=== PATIENT | male | born 1975 | race Caucasian/White ===

== ENCOUNTER 2022-02-19 09:57 | Day surgery (SDC) | payer OTHER ==
--- NOTE | 2022-02-19 09:08 | HP ---
DATE OF SURGERY: 02/19/2022 HISTORY OF PRESENT ILLNESS: The patient is a 46-year-old for a while now increasing in size, worse with eating, increased bloating ventral hernia likely with some incarcerated preperitoneal fat and omentum. PAST MEDICAL HISTORY: Hypertension, lung disease, anxiety. PAST SURGICAL HISTORY: Carpal tunnel surgery in the past. MEDICATIONS: Testosterone, sildenafil, quetiapine, pantoprazole, mometasone, metoprolol, meloxicam, fluticasone, dextroamphetamine, chlorhexidine, bupropion, Breo Ellipta, albuterol. ALLERGIES: NKDA. RAGWEED. MOLD. FAMILY HISTORY: Negative in regards to this problem. SOCIAL HISTORY: No smoking or alcohol abuse. REVIEW OF SYSTEMS: Fourteen systems reviewed. Negative or noncontributory as above and per preadmission questionnaire. PHYSICAL EXAMINATION: GENERAL: No acute distress. HEENT: Sclerae nonicteric. NECK: No JVD. CHEST: Equal excursion, nonlabored breathing. CVS: Regular rate and rhythm. ABDOMEN: Soft. No peritoneal signs. Incarcerated ventral hernia mid abdomen possibly some preperitoneal or omental fat. I feel he would benefit from repair. EXTREMITIES: No significant edema. NEURO: Alert, oriented, moving extremities symmetrically. PSYCH: Appropriate mood and affect. IMPRESSION: Incarcerated ventral hernia increasing in size, increasingly symptomatic. I feel he would benefit from repair. Discussed options of minimally invasive versus open. I had a long discussion with the patient who agrees proceed with open repair of incarcerated ventral hernia with mesh at umbilical area as outpatient. General risk of bleeding or infection, risk of hematoma or seroma formation, risk of mesh infection possibly requiring removal, risk of adhesion, scar formation or obstruction. Remote risk of mesh fracture or failure possibly creating issue with the viscera or other structures possibly requiring other procedures, ongoing morbidity, general risk of aches, pains, burning or numbness possibly residential or chronic in nature, risk of hernia recurrence, general risk of anesthesia, deep venous thrombosis, pulmonary embolism, pneumonia but not limited to. Risk of chronic aches and pains. He understands and agrees to the planned procedure, will proceed with open repair of incarcerated ventral hernia with mesh at the umbilical area as an outpatient.
[~2022-02-19 09:57] MED LIST: Lactated Ringers 1,000 ML IV SCH
[2022-02-19] MEDS ORDERED: Lactated Ringers 1,000 ML IV ONE ×2 (10:07→12:12)
[2022-02-19] MEDS ORDERED: CEFAZOLIN 2 GM-D5W BAG** 2 GM/50 ML ML IV SCH (10:30)
[2022-02-19] MEDS ORDERED: Zofran 4 MG/2 ML VIAL ONE (11:41)
[2022-02-19] MEDS ORDERED: Zemuron 100 MG/10 ML ONE (11:41)
[2022-02-19] MEDS ORDERED: TORAdol 30 mg Injection ONE (11:41)
[2022-02-19] MEDS ORDERED: BRIDION 200MG/2ML IV ONE (11:41)
[2022-02-19] MEDS ORDERED: DIPRIVAN 200 MG/20 ML IV ONE (11:41)
[2022-02-19] MEDS ORDERED: Xylocaine-Mpf 2% 5 Ml Vial ONE (11:41)
[2022-02-19] MEDS ORDERED: SUBLIMAZE 100 MCG/2 ML ONE ×2 (11:41→13:11)
[2022-02-19] MEDS ORDERED: Decadron 4 MG INJ ONE (11:41)
[2022-02-19] MEDS ORDERED: Versed 2 MG/2 ML Injection ONE (11:42)
[2022-02-19] MEDS ORDERED: Sensorcaine 0.25% 10 ML ONE (11:55)
[2022-02-19] MEDS ORDERED: Marcaine 0.5%/Epinephrine 10 ML ONE (12:15)
[2022-02-19] MEDS ORDERED: DEXMEDETOMIDINE 80 MCG/20ML-NS IV ONE (12:17)
[2022-02-19] MEDS ORDERED: BACIGUENT 30 GM ONE (12:30)
[2022-02-19] MEDS ORDERED: Ephedrine Sulfate 50 MG/ML ONE (12:36)
[2022-02-19 14:39] VITALS: BP 151/119; PULSE 67; O2SAT 96
--- NOTE | 2022-02-20 09:19 | OP ---
SURGERY DATE/TIME: 02/19/2022 1150 PREOPERATIVE DIAGNOSIS: Incarcerated ventral hernia mid abdomen. POSTOPERATIVE DIAGNOSIS: Incarcerated ventral hernia x2 mid abdomen. PROCEDURE: Repair of incarcerated ventral hernia x2 (repaired en bloc with single piece of mesh to single incision). SURGEON: Dr. Adolph Arnold. ANESTHESIA: General. ESTIMATED BLOOD LOSS: Minimal. INDICATIONS: As noted above. Risks and benefits explained in detail and not limited to and consent obtained. The site is confirmed with the patient in the preoperative holding area. DESCRIPTION OF PROCEDURE AND FINDINGS: He is taken to the operating room. General anesthesia induced. Abdomen prepped and draped in usual sterile fashion. After official time out and no disagreement with planned procedure, the bulk of the hernia was a little bit towards cephalad mid abdomen. A transverse incision made and dissection carried down circumferentially around this hernia. It is carefully freed from its attachments underneath the rectus and then able to be reduced down in the abdomen. There was another smaller hernia just cephalad to this. Both of these are repaired en bloc by placing 4.[address] mesh just underneath this area and carefully secured and circumferentially around with 0 Prolene about 1 cm around the periphery in a tension free manner. Once this is accomplished, 0 PDS used to close the attenuated fascia over top of the mesh isolating from this wound. The tissue was tacked down to the level of the fascia reducing the space. Subcu closed with 3-0 Vicryl. Skin closed with 4-0 Vicryl. Steri-Strips and sterile dressing applied. 0.25% Marcaine local injected. Anesthesia applying tap blocks. The patient tolerated the procedure well. There were no immediate complications. Findings discussed with the family out in the waiting area including the fact there had been two hernias there repaired en bloc with a single piece of mesh. He is to avoid heavy lifting, pushing, pulling or straining over the next six to eight weeks. He is to wear an abdominal binder.
== END 2022-02-19 14:48 | disposition home or self-care (01) ==
LOC: SDC 09:57
PROVIDERS: ATTEND Surgery
DX: K43.6 Other and unspecified ventral hernia with obstruction, without gangrene (principal)
CPT/HCPCS: 49561; 49568; 64488; 76937; 76942; C1781; J0690; J1100; J1885; J2250; J2405; J2704; J3010; L0625; A9270-GY

== ENCOUNTER 2023-04-24 14:40 | Day surgery (SDC) | payer OTHER ==
[2023-04-24] MEDS ORDERED: Decadron 4 MG INJ IV ONE (14:41)
[2023-04-24] MEDS ORDERED: LIDOCAINE HCL 1% 50 MG/5 ML VL PF IJ ONE (14:41)
[2023-04-24] MEDS ORDERED: Lactated Ringers 1,000 ML IV ONE (16:32)
[2023-04-24] MEDS ORDERED: DIPRIVAN 200 MG/20 ML IV ONE (17:06)
--- NOTE | 2023-04-24 19:27 | XRAY ---
Indication: Right piriformis injection. Intraoperative fluoroscopy provided for 8 seconds. Single digital spot image submitted for interpretation demonstrates posterior needle tip projecting over the right piriformis. Small amount of contrast injected for needle tip placement. Correlate with intraoperative findings/report.
--- NOTE | 2023-04-25 09:10 | XRAY ---
8 seconds of fluoroscopy was used in surgery for a right piriformis injection.
== END 2023-04-24 17:27 | disposition home or self-care (01) ==
LOC: SDC-PAIN 14:40
PROVIDERS: ATTEND Psychiatry & Neurology Pain Medicine
DX: M79.18 Myalgia, other site (principal)
CPT/HCPCS: 20552; 72170; 77002; J1100; J2001; J2704; Q9966

== ENCOUNTER 2023-09-25 09:36 | Emergency (ER) | payer BC, OTHER ==
[2023-09-25 10:00] VITALS: PULSE 90; TEMP 97.3; O2SAT 99
[2023-09-25] MEDS ORDERED: Norflex 60 MG/2 ML ONE (10:43)
[2023-09-25] MEDS ORDERED: MORPHINE SULFATE 4 MG INJ ONE (10:43)
[2023-09-25] MEDS: MORPHINE SULFATE 4 MG INJ IM ONE (10:46)
[2023-09-25] MEDS: Norflex 60 MG/2 ML IM ONE (10:46)
--- NOTE | 2023-09-25 11:36 | XRAY ---
Indication: Pain. Garcia's cyst. Two-dimensional sonogram and color Doppler imaging major venous vessels right leg performed. Comparison: None No thrombus seen in the examined deep venous vessels right leg including greater saphenous vein. Veins demonstrate normal compressibility. Venous waveforms are normal with and without augmentation. No focal solid/cystic popliteal mass. Impression: Right leg negative for DVT.
--- NOTE | 2023-09-25 12:01 | ERPHSYRPT ---
- History of Present Illness Time Seen by Provider: 09/25/23 09:54 Source: patient Exam Limitations: no limitations Patient Subjective Stated Complaint: Pt states that he has been having sciatica pain for about the last 9 months and now he states that it goes down his right leg and then hits something behind the knee that feels like it pulls all the way down his back/lateral side of his leg Triage Nursing Assessment: Pt brought self to the ER, hypertensive, rates pain in his right buttock and leg as 8/10, pulses normal, skin n/w/d, pt walked into the ER with a stable gait, has had pain for the past 9 months and had went to [place] in the past but doesn't want to see him again, pt states that he has an appt with Dr. Clements on October 24 and that was the soonest they could get him in, pt went to [facility] yesterday and they gave him some prednisone that he says is not working, pt had been on 2 Methyl Pred packs in July with no relief Physician History: 47-year-old male with history of right leg pain/sciatica presented to the ER with complaint of increasing pain right lower extremity for the last few days. Patient reports he has been taking his Neurontin along with Tylenol and ibuprofen with no relief. Patient reports pain shoots from his right hip/buttock down to back of the knee and then on the lateral side of leg to his foot. Pain is more aggravated with activity especially at work which involves lifting objects. Patient denies any numbness tingling or weakness of right lower extremity. No loss of bowel or bladder control. No saddle anesthesia. Pain is similar to previous. Patient was seen at pain management and had some kind of intervention done which helped for 1 week. Patient MRI last year showed annular tear/bulging disc at L3-L4 level. Denies any new fall or trauma. Allergies/Adverse Reactions: ragweed pollen Allergy (Intermediate, Verified 09/25/23 10:01) cold like symptons mold Allergy (Verified 09/25/23 10:01) Home Medications: ALPRAZolam 1 MG [Xanax 1 mg] 1 mg PO QID PRN PRN 02/06/22 [History] Albuterol Sulfate [Proair Digihaler] 2 puffs IH CLARIFY PRN 02/06/22 [History] Bupropion HCl 150 mg Sr [Wellbutrin SR 150 MG] 1 tab PO BID 02/06/22 [History] Chlorhexidine [Chlorhexidine Flavor] 0.12 ml PO UD 02/06/22 [History] Dextroamphetamine/Amphetamine [Adderall Xr 30 mg Capsule] 30 mg PO BID 02/06/22 [History] Fexofenadine HCl 180 mg PO DAILY 02/06/22 [History] Metoprolol Succinate 100 mg [Toprol Xl 100 MG] 50 mg PO DAILY 02/06/22 [History] PANTOPRAZOLE 40 mg Tablet [Protonix 40MG Tablet] 40 mg PO DAILY 02/06/22 [History] Quetiapine Fumarate 100 mg [Seroquel 100 MG] 100 mg PO HS 02/06/22 [History] Sildenafil Citrate [Viagra] 1 tab PO DAILY PRN PRN 02/06/22 [History] Testosterone 4 applic TOP DAILY 02/06/22 [History] Escitalopram Oxalate [Lexapro] 10 mg PO DAILY 09/25/23 [History] Gabapentin [Neurontin ] 300 mg PO TID 09/25/23 [History] Lisinopril 10 mg [Zestril 10 MG] 10 mg PO DAILY 09/25/23 [History] Hx Tetanus, Diphtheria Vaccination/Date Given: No Hx Influenza Vaccination/Date Given: No Hx Pneumococcal Vaccination/Date Given: No Travel Risk - International Travel Have you traveled outside of the country in past 3 weeks: No - Emerging Infectious Disease Are you exhibiting symptoms associated with any current EIDs: No - Review of Systems Constitutional: No Symptoms Ears, Nose, & Throat: No Symptoms Respiratory: No Symptoms Cardiac: No Symptoms Abdominal/Gastrointestinal: No Symptoms Genitourinary Symptoms: No Symptoms Musculoskeletal: Back Pain Skin: No Symptoms Neurological: No Symptoms Psychological: No Symptoms Endocrine: No Symptoms Hematologic/Lymphatic: No Symptoms - Past Medical History Pertinent Past Medical History: Yes Neurological History: No Pertinent History ENT History: No Pertinent History Cardiac History: Hypertension Respiratory History: Other Endocrine Medical History: No Pertinent History Musculoskeletal History: Rheumatoid Arthritis GI Medical History: GERD History: No Pertinent History Psycho-Social History: Anxiety, Depression Male Reproductive Disorders: No Pertinent History Other Medical History: CARPAL TUNNEL SURGERY ON THE R HAND. SEES DR. GARNETT FOR HIS LUNGS. - Past Surgical History Past Surgical History: No Neuro Surgical History: No Pertinent History Cardiac: No Pertinent History Respiratory: No Pertinent History Gastrointestinal: No Pertinent History Genitourinary: No Pertinent History Musculoskeletal: Other Male Surgical History: No Pertinent History Other Surgical History: carpal tunnel - Social History Smoking Status: Never smoker Exposure to second hand smoke: Yes (grandpa- as a child) Drug Use: none Patient Lives Alone: Yes - Nursing Vital Signs Nursing Vital Signs: Initial Vital Signs Temperature 97.3 F 09/25/23 09:43 Pulse Rate 90 09/25/23 09:43 Blood Pressure 165/108 09/25/23 09:43 O2 Sat by Pulse Oximetry 99 09/25/23 09:43 Pain Scale Pain Intensity 8 - Physical Exam General Appearance: no apparent distress, alert Eyes, Ears, Nose, Throat Exam: normal ENT inspection Neck Exam: normal inspection, full range of motion Cardiovascular/Respiratory Exam: normal breath sounds, regular rate/rhythm Gastrointestinal/Abdominal Exam: non-tender, soft, no organomegaly Back Exam: normal inspection, normal range of motion, No vertebral tenderness Hips Exam: bilateral: non-tender, normal inspection, normal range of motion Legs Exam: bilateral leg: normal inspection, normal range of motion, no evidence of injury Knees Exam: right knee: soft tissue tenderness (Tenderness palpated.), left knee: non-tender, bilateral knee: normal inspection, normal range of motion, no evidence of injury Ankle Exam: bilateral ankle: non-tender, normal inspection, normal range of motion, no evidence of injury Neuro/Tendon Exam: normal sensation, normal motor functions, normal tendon functions Mental Status Exam: alert, oriented x 3, cooperative Skin Exam: normal color SpO2 Interpretation: normal SpO2: 99 O2 Delivery: Room Air Ordered Tests: Active Orders 24 hr Category Date Time Status VENOUS UNILAT/LIMITED EXTREMIT [US] Stat Exams 09/25/23 10:32 Completed Medication Summary Discontinued Medications Generic Name Dose Route Start Last Admin Trade Name Freq PRN Reason Stop Dose Admin Morphine Sulfate 4 mg 09/25/23 10:32 09/25/23 10:46 Morphine Sulfate 4 Mg/Ml Injection IM 09/25/23 10:33 4 mg STAT ONE Administration Morphine Sulfate Confirm 09/25/23 10:43 Morphine Sulfate 4 Mg/Ml Injection Administered 09/25/23 10:44 Dose 4 mg .ROUTE .STK-MED ONE Orphenadrine Citrate 60 mg 09/25/23 10:33 09/25/23 10:46 Orphenadrine Citrate 60 Mg/2 Ml Vial IM 09/25/23 10:34 60 mg STAT ONE Administration Orphenadrine Citrate Confirm 09/25/23 10:43 Orphenadrine Citrate 60 Mg/2 Ml Vial Administered 09/25/23 10:44 Dose 60 mg .ROUTE .STK-MED ONE - Progress Progress: improved, re-examined Progress Note: 09/25/23 11:59 47-year-old is evaluated in the ER for right lower extremity pain. Has negative neuro exam in lower extremities. No cauda equina symptoms. Pain is similar to previous. Given morphine and Norflex, on reevaluation feeling much better. Patient was complaining of pain and swelling in the popliteal fossa and I have obtained ultrasound which is negative for Garcia's cyst. No DVT. I recommended using muscle relaxants and NSAIDs and outpatient orthopedics follow-up. Discussed signs symptoms of worsening needing return to ER which she seems understanding. Stable for discharge. Counseled pt/family regarding: diagnosis, need for follow-up, rad results Medical Desision Making - Diagnostic Testing Diagnostic test were ordered, analyzed, and reviewed by me: Yes Radiological Interpretation: Reviewed by me, Discussed w/ radiologist - Risk of complications The pt has a mod risk of morbidity or mortality based on: Need for prescription drug management - Departure Departure Disposition: Home Clinical Impression: Sciatica Condition: Stable Critical Care Time: No Referrals: MARI CLEMENTS MD [Primary Care Provider] - Follow up/PCP as directed JANESSA TAFOYA MD [ACTIVE STAFF] - Follow up/PCP as directed (call for appointment) Instructions: Radiculopathy (DC) Additional Instructions: Follow-up with primary care/orthopedics/spinal surgery for reevaluation. Avoid exertional activities. Return to ER for intractable pain, numbness tingling weakness of lower extremities, perineal numbness, loss of bowel or bladder control etc. Prescriptions: Diclofenac Sodium 50 mg PO TID PRN 10 Days #30 tab PRN Reason: Pain Methocarbamol [Robaxin] 750 mg PO QID 10 Days #40 tablet
[2023-09-25 12:06] VITALS: BP 132/91; RESP 17
== END 2023-09-25 12:16 | disposition home or self-care (01) ==
LOC: ED 09:36
DX: M54.31 Sciatica, right side (principal); I10 Essential (primary) hypertension; Z79.899 Other long term (current) drug therapy
CPT/HCPCS: 93971; 96372; 99283; J2270; J2360

== ENCOUNTER → 2023-09-26 | Emergency (ER) | payer BC | LOC: ED 09:33 | DX: Z53.21 Procedure and treatment not carried out due to patient leaving prior to being seen by health care provider (principal) ==

== ENCOUNTER 2024-07-06 15:40 | Emergency (ER) | payer OTHER ==
--- NOTE | 2024-07-06 15:46 | ERPHSYRPT ---
- History of Present Illness Time Seen by Provider: 07/06/24 15:46 Source: patient Exam Limitations: no limitations Physician History: This is a 48-year-old white male patient who arrives by private vehicle. Patient drove himself to the emergency department with complaint of right hip pain that shoots posteriorly and caudally down to his ankle on the right side. On 06/10/2024 patient underwent spinal surgery that "shaved his boat through a back incision". This procedure was performed to release compression of the sciatic nerve. The patient states that 1-1/2 weeks ago he was sitting on a chair and the chair collapsed. He fell onto the right hip. Patient describes the pain is sharp, stabbing and constant. He is able to walk on it has been doing so. Patient has a history of hypertension, anxiety and gastroesophageal reflux disease. Patient's pain medicine physician is Dr. Breaux. Patient's spinal surgeon is Dr. Pagan. Timing/Duration: week(s) (1.5) Occured at: home Context: fall (The height of the chair onto his right hip) Quality: sharpness, stabbing Hip Pain Location: hip (R) Severity of Pain-Max: moderate Severity of Pain-Current: moderate Modifying Factors: Improves With: movement Symptoms prior to fall: none Associated Symptoms: denies symptoms Allergies/Adverse Reactions: ragweed pollen Allergy (Intermediate, Verified 07/06/24 16:12) cold like symptons mold Allergy (Verified 07/06/24 16:12) Home Medications: ALPRAZolam 1 MG [Xanax 1 mg] 1 mg PO QID PRN PRN 02/06/22 [History] Albuterol Sulfate [Proair Digihaler] 2 puffs IH CLARIFY PRN 02/06/22 [History] Bupropion HCl 150 mg Sr [Wellbutrin SR 150 MG] 1 tab PO BID 02/06/22 [History] Chlorhexidine [Chlorhexidine Flavor] 0.12 ml PO UD 02/06/22 [History] Dextroamphetamine/Amphetamine [Adderall Xr 30 mg Capsule] 30 mg PO BID 02/06/22 [History] Fexofenadine HCl 180 mg PO DAILY 02/06/22 [History] Metoprolol Succinate 100 mg [Toprol Xl 100 MG] 50 mg PO DAILY 02/06/22 [History] PANTOPRAZOLE 40 mg Tablet [Protonix 40MG Tablet] 40 mg PO DAILY 02/06/22 [History] Quetiapine Fumarate 100 mg [Seroquel 100 MG] 100 mg PO HS 02/06/22 [History] Sildenafil Citrate [Viagra] 1 tab PO DAILY PRN PRN 02/06/22 [History] Testosterone 4 applic TOP DAILY 02/06/22 [History] Lisinopril 10 mg [Zestril 10 MG] 10 mg PO DAILY 09/25/23 [History] Hx Tetanus, Diphtheria Vaccination/Date Given: No Hx Influenza Vaccination/Date Given: No Hx Pneumococcal Vaccination/Date Given: No Travel Risk - International Travel Have you traveled outside of the country in past 3 weeks: No - Emerging Infectious Disease Are you exhibiting symptoms associated with any current EIDs: No - Review of Systems Constitutional: No Symptoms Eyes: No Symptoms Ears, Nose, & Throat: No Symptoms Respiratory: No Symptoms Cardiac: No Symptoms Abdominal/Gastrointestinal: No Symptoms Genitourinary Symptoms: No Symptoms Musculoskeletal: Fall (Right hip injury 1-1/2 weeks ago), Injury (Right hip 1- 1/2 weeks ago) Skin: No Symptoms Neurological: No Symptoms Psychological: No Symptoms Endocrine: No Symptoms Hematologic/Lymphatic: No Symptoms Immunological/Allergic: No Symptoms All Other Systems: Reviewed and Negative - Past Medical History Pertinent Past Medical History: Yes Neurological History: Other ENT History: No Pertinent History Cardiac History: Hypertension Respiratory History: No Pertinent History Endocrine Medical History: No Pertinent History Musculoskeletal History: No Pertinent History GI Medical History: GERD History: No Pertinent History Psycho-Social History: Anxiety, Depression Male Reproductive Disorders: No Pertinent History Other Medical History: CARPAL TUNNEL SURGERY IN R HAND. - Past Surgical History Past Surgical History: No Neuro Surgical History: No Pertinent History Cardiac: No Pertinent History Respiratory: No Pertinent History Gastrointestinal: No Pertinent History Genitourinary: No Pertinent History Musculoskeletal: Other Male Surgical History: No Pertinent History Other Surgical History: carpal tunnel - Social History Smoking Status: Never smoker Exposure to second hand smoke: Yes (grandpa- as a child) Drug Use: none Patient Lives Alone: Yes - Social Determinants of Health Will the patient participate in the screening: Yes Do you worry about a steady place to live?: No In the past 12 months,have you had to go without utilities?: No Transportation Issues: No Has anyone in your support network made you feel unsafe?: No Have you or anyone in your house had to go without enough: No - Nursing Vital Signs Nursing Vital Signs: Initial Vital Signs Temperature 98.5 F 07/06/24 16:01 Pulse Rate 80 07/06/24 16:01 Respiratory Rate 17 07/06/24 16:01 Blood Pressure 172/108 07/06/24 16:01 O2 Sat by Pulse Oximetry 98 07/06/24 16:01 Pain Scale Pain Intensity 8 - Physical Exam General Appearance: no apparent distress, alert, anxiety Eye Exam: PERRL/EOMI, eyes nml inspection Ears, Nose, Throat Exam: normal ENT inspection, moist mucous membranes Neck Exam: normal inspection, non-tender, supple, full range of motion Respiratory Exam: airway intact, No chest tenderness, No respiratory distress Cardiovascular Exam: regular rate/rhythm, normal heart sounds, normal peripheral pulses Gastrointestinal Exam: soft, normal bowel sounds, No tenderness Rectal Exam: not done Back Exam: normal inspection, normal range of motion, No CVA tenderness, No vertebral tenderness Extremity Exam: normal inspection, normal range of motion, pelvis stable Neurologic Exam: alert, oriented x 3, cooperative, blood typer II-XII nml as tested, normal mood/affect, nml cerebellar function, nml station & gait, sensation nml Skin Exam: normal color, warm, dry Lymphatic Exam: No adenopathy SpO2 Interpretation: normal O2 Delivery: Room Air - Course Nursing assessment & vital signs reviewed: Yes Ordered Tests: Active Orders 24 hr Category Date Time Status ANKLE (3 VIEWS) Stat Exams 07/06/24 16:14 Completed HIP UNI (2V) INCL PEL IF DONE Stat Exams 07/06/24 16:14 Completed Medication Summary Discontinued Medications Generic Name Dose Route Start Last Admin Trade Name Edgarq PRN Reason Stop Dose Admin Methylprednisolone Sodium 0 mg 07/06/24 16:42 Succinate 125 mg/ Sterile IM 07/06/24 16:43 Water 2 ml STAT ONE Hydromorphone HCl 1 mg 07/06/24 16:42 Hydromorphone 1 Mg/1ml Inj IM 07/06/24 16:43 STAT ONE Methylprednisolone Sodium Succinate Confirm 07/06/24 16:54 Methylprednis Sod Succ 125 Mg/2 Ml Vial Administered 07/06/24 16:55 Dose 125 mg .ROUTE .STK-MED ONE Ondansetron HCl 4 mg 07/06/24 16:42 Zofran 4 Mg/Udtablet Orally Disintegrating PO 07/06/24 16:43 STAT ONE Ondansetron HCl Confirm 07/06/24 16:54 Zofran 4 Mg/Udtablet Orally Disintegrating Administered 07/06/24 16:55 Dose 4 mg .ROUTE .STK-MED ONE Orphenadrine Citrate 60 mg 07/06/24 16:42 Orphenadrine Citrate 60 Mg/2 Ml Vial IM 07/06/24 16:43 STAT ONE Orphenadrine Citrate Confirm 07/06/24 16:54 Orphenadrine Citrate 60 Mg/2 Ml Vial Administered 07/06/24 16:55 Dose 60 mg .ROUTE .STK-MED ONE Sterile Water Confirm 07/06/24 16:54 Water For Injection,Sterile 10 Ml Vial Administered 07/06/24 16:55 Dose 10 ml IJ .STK-MED ONE - Progress Progress: improved, pain not gone completely Progress Note: 07/06/24 16:41 My medical decision making and the assignment of low to moderate complexity to this patient's medical issue today is based on review of the patient's past medical history, review the patient's medication list, reviewed patient drug allergy list, history present illness and physical findings on examination. The workup in this patient includes x-ray of the patient's right ankle and right hip as well as pelvis. Differential diagnosis includes but is not limited to sciatica, fracture dislocation right hip, contusion right hip 07/06/24 16:57 The radiologist interpreted the following plain x-rays and I reviewed the impression: Right hip and pelvis x-ray is negative for acute fracture or dislocation. Right ankle x-ray is negative for acute fracture or dislocation. Counseled pt/family regarding: diagnosis, need for follow-up, rad results Medical Desision Making - Diagnostic Testing Diagnostic test were ordered, analyzed, and reviewed by me: Yes Radiological Interpretation: Reviewed by me, Teleradiologist Report - Risk of complications The pt has a mod risk of morbidity or mortality based on: Need for prescription drug management - Departure Departure Disposition: Home Clinical Impression: Right hip pain, Right ankle pain, Sciatica Condition: Stable Critical Care Time: No Referrals: MARI RILEY MD [Primary Care Provider] - Follow up/PCP as directed Additional Instructions: Take your medications as prescribed. Call your spinal surgeon and pain specialist for outpatient management of your pain. Prescriptions: Prednisone 10 mg [Deltasone 10 mg] 10 mg PO TID #12 tablet Orphenadrine Citrate 100 mg [Norflex 100 MG Tablet] 100 mg PO BID #10 tab
[2024-07-06 16:12] VITALS: TEMP 98.5
[2024-07-06 16:16] VITALS: RESP 16
--- NOTE | 2024-07-06 16:49 | XRAY ---
Indication: Pain following fall 1.5 weeks ago. Comparison: None 3 view right ankle demonstrates normal bones, articulation, and soft tissues.
--- NOTE | 2024-07-06 16:49 | XRAY ---
Indication: Pain following fall 1.5 weeks ago. Comparison: None AP pelvis and 2 view right hip obtained. No bony, articular, or soft tissue abnormalities.
[2024-07-06] MEDS ORDERED: Norflex 60 MG/2 ML ONE (16:54)
[2024-07-06] MEDS ORDERED: Sterile H2O 10 ml IJ ONE (16:54)
[2024-07-06] MEDS ORDERED: solu-MEDROL ONE (16:54)
[2024-07-06] MEDS ORDERED: ZOFRAN ODT 4 MG ONE (16:54)
[2024-07-06] MEDS: Norflex 60 MG/2 ML IM ONE (16:56)
[2024-07-06] MEDS: ZOFRAN ODT 4 MG PO ONE (16:56)
[2024-07-06] MEDS: solu-MEDROL 125 MG, Sterile H2O 10 ml 2 ML IM ONE (16:57)
[2024-07-06] MEDS ORDERED: Hydromorphone 1 mg/ml Injection ONE (17:03)
[2024-07-06] MEDS: Hydromorphone 1 mg/ml Injection IM ONE (17:04)
[2024-07-06 17:19] VITALS: BP 140/98; PULSE 83; O2SAT 95
== END 2024-07-06 17:20 | disposition home or self-care (01) ==
LOC: ED 15:40
DX: M25.551 Pain in right hip (principal); M25.571 Pain in right ankle and joints of right foot; M54.31 Sciatica, right side; I10 Essential (primary) hypertension; Z79.52 Long term (current) use of systemic steroids; Z79.899 Other long term (current) drug therapy
CPT/HCPCS: 73502; 73610; 96372; 99284; J1171; J2360; J2919; Q0162

== ENCOUNTER 2024-09-09 06:14 | Day surgery (SDC) | payer OTHER ==
[2024-09-09] MEDS: Lactated Ringers 1,000 ML IV SCH (06:42)
[2024-09-09 06:57] VITALS: RESP 16
[2024-09-09 07:08] LABS: ANION GAP 15.6 MEQ/L (5-15); Creatinine 1 0.9 mg/dL (0.66-1.25); EST GLOMERULAR FILTRATION RATE 105.4 ML/MIN; Potassium 3.8 mmol/L (3.5-5.1)
[2024-09-09] MEDS ORDERED: propofoL IV ONE ×3 (08:09→08:19)
[2024-09-09 09:23] VITALS: BP 114/74; PULSE 67; TEMP 96.3; O2SAT 98
--- NOTE | 2024-09-10 12:15 | OP ---
SURGERY DATE/TIME: 09/09/2024 2135-0019 PREOPERATIVE DIAGNOSIS: Hematochezia. POSTOPERATIVE DIAGNOSIS: Normal colon. PROCEDURE: Colonoscopy. SURGEON: Jai Clements MD ANESTHESIA: MAC, by Irvin Tapia CRNA. ESTIMATED BLOOD LOSS: None. SPECIMENS: None. DESCRIPTION OF PROCEDURE AND FINDINGS: After informed written consent was obtained, the patient was taken to the endoscopy suite. He was placed in a left lateral decubitus position, and anesthesia was titrated to desired level of consciousness. Digital rectal exam showed normal sphincter tone and no internal lesions. The scope was inserted into the rectum, and sequentially the entire colonic mucosa was traversed. The level of the cecum was reached and verified under direct visualization of the ileocecal valve. Upon withdrawal, careful mucosal inspection revealed no gross mucosal abnormalities. Prep was noted to be good. Prior to withdrawal, retroflexion showed no internal lesions. Upon withdrawal, there was a very tiny internal hemorrhoid, nearly resolved with no active bleeding. Otherwise, there were no other abnormalities appreciable on exam. The scope was removed, and patient was transferred to the recovery room in good condition. Recommend routine surveillance for colon cancer screening in 10 years.
== END 2024-09-09 09:33 | disposition home or self-care (01) ==
LOC: SDC 06:14
PROVIDERS: ATTEND Family Medicine
DX: K92.1 Melena (principal)
CPT/HCPCS: 36415; 80048; 93005; J2704